=== PATIENT | female | born 1970 | race Caucasian/White ===

== ENCOUNTER 2018-02-10 09:48 | Emergency (ER) | payer OTHER, MEDICAID | END 2018-02-10 11:18 | disposition home or self-care (01) | LOC: FTE 09:48 | DX: R20.2 Paresthesia of skin (principal); R03.0 Elevated blood-pressure reading, without diagnosis of hypertension | CPT/HCPCS: 99282 ==

== ENCOUNTER 2018-03-26 15:32 | Emergency (ER) | payer OTHER ==
[2018-03-26] MEDS: METHYLPREDNISOLONE 125 MG INJ IM (16:23)
[2018-03-26] MEDS: DIPHENHYDRAMINE 50 MG INJ IM (16:23)
== END 2018-03-26 17:00 | disposition home or self-care (01) ==
LOC: FTE 15:32
DX: R21 Rash and other nonspecific skin eruption (principal)
CPT/HCPCS: 96372; 99284-25